=== PATIENT | female | born 1955 | race Caucasian/White ===

== ENCOUNTER → 2017-03-14 | Outpatient (CLI) | payer BC ==
[~2017-03-14] MED LIST: ALLERTEC; AMLO5 PO; ASPI81EC PO; CITA20 PO; CRUTCH4 USE; IBUP800 PO; LISI20 PO; LOVA40 PO; MEDR5 PO; METF500 PO; OMEP40CA12 PO; ONDA4ODT MM; OXYACE5T PO; SIMV10 PO; TAMS.4ER PO; [UNRECOGNIZED DRUG - REMARK]
== END | disposition home or self-care (01) ==
LOC: LAB 11:05
PROVIDERS: Family Medicine
DX: B02.9 Zoster without complications (principal)
CPT/HCPCS: 87798

== ENCOUNTER → 2017-05-17 | Outpatient (CLI) | payer BC | END | disposition home or self-care (01) | LOC: LAB SHORT 08:09 → PLD 08:09 | DX: L30.8 Other specified dermatitis (principal) | CPT/HCPCS: 88305; 88312 ==

== ENCOUNTER 2017-05-18 06:24 | Day surgery (SDC) | payer BC ==
[~2017-05-18] VITALS: Ht 154.9 cm; Wt 91.3 kg
== END 2017-05-18 09:56 | disposition home or self-care (01) ==
LOC: ORSCSDS 06:24
PROVIDERS: Orthopaedic Surgery
PROC: 0JBG0ZZ Excision of Right Lower Arm Subcutaneous Tissue and Fascia, Open Approach (ICD-10-PCS; principal; 2017-05-18 08:00)
DX: M67.431 Ganglion, right wrist (principal); I10 Essential (primary) hypertension; E11.9 Type 2 diabetes mellitus without complications; Z79.899 Other long term (current) drug therapy; Z79.82 Long term (current) use of aspirin
CPT/HCPCS: 82947; 88304; J1885; J2405; J3010; J3370; J7120

== ENCOUNTER → 2018-03-14 | Outpatient (CLI) | payer BC ==
[2018-03-15 12:42] LABS: Appearance, Urine Clear (Clear); Bilirubin, Urine Neg (Neg); Blood, Urine 1+ (Neg); Color, Urine Yellow (P-Yellow); Glucose Qualitative, Urine 3+ (Neg); Ketones, Urine Neg (Neg); Leukocyte Esterase, Urine Neg (Neg); Nitrite, Urine Neg (Neg); Protein, Urine 2+ (Neg); Urobilinogen, Urine NORM (Normal)
[2018-03-15 12:56] LABS: Bacteria Few /hpf; Squamous Epithelial Cells Few /hpf (Few); White Blood Cells, Urine 0-2 /hpf (0-5)
== END | disposition home or self-care (01) ==
LOC: LAB 12:07 → LAB SHORT 12:07
PROVIDERS: Family Medicine
DX: N39.0 Urinary tract infection, site not specified (principal)
CPT/HCPCS: 81001

== ENCOUNTER → 2020-11-18 | Outpatient (CLI) | payer OTHER | END | disposition home or self-care (01) | LOC: LAB SHORT 16:15 | DX: N39.0 Urinary tract infection, site not specified (principal) | CPT/HCPCS: 87086 ==

== ENCOUNTER 2021-02-03 07:58 | Day surgery (SDC) | payer OTHER ==
[2021-02-01 10:56] LABS: BASOPHILS ABSOLUTE AUTO 0.04 K/mm3 (0.00-0.23); BASOPHILS PERCENT AUTO 1 % (0-2); EOSINOPHILS PERCENT AUTO 3 % (0-6); Hematocrit 38.9 % (33.0-51.0); IMMATURE GRAN ABSOLUTE AUTO 0.02 K/mm3 (0.00-0.10); IMMATURE GRAN PERCENT AUTO 0 % (0-1); LYMPHOCYTES ABSOLUTE AUTO 1.24 K/mm3 (0.84-5.20); LYMPHOCYTES PERCENT AUTO 20 % (21-46); MONOCYTES ABSOLUTE AUTO 0.29 K/mm3 (0.16-1.47); MONOCYTES PERCENT AUTO 5 % (4-13); Mean Corpuscular HGB Conc 33.4 g/dL (31.5-36.5); Mean Corpuscular Volume 93 fL (80-100); Mean Platelet Volume 9.5 fL (9.1-12.4); NEUTROPHILS ABSOLUTE AUTO 4.43 K/mm3 (1.96-9.15); NEUTROPHILS PERCENT AUTO 71 % (41-73); Platelet Count 267 K/mm3 (150-400); RDW Coefficient Variation 13.2 % (11.7-14.2); RDW Standard Deviation 44.7 fL (35.1-46.3); White Blood Cell Count 6.22 K/mm3 (4.00-11.30)
[~2021-02-03] VITALS: Ht 154.9 cm; Wt 115.5 kg
[2021-02-03] MEDS ORDERED: IBUP200 PO (08:19)
[2021-02-03] MEDS ORDERED: GLIM4 PO (08:21)
[2021-02-03] MEDS ORDERED: PIOG15 PO (08:22)
[2021-02-03] MEDS ORDERED: HYDCHL25 PO (08:22)
[2021-02-03] MEDS ORDERED: LETR2.5 PO (08:23)
--- NOTE | 2021-02-03 08:24 | NUR ---
History, Chart, Medications and Allergies reviewed before start of procedure. Lungs clear T/O to Auscultation. Patient confirms NPO status and agrees with scheduled surgery. Pre-Op teaching done. Pt verbalizes understanding. Patient reports completing Chlorhexadine shower X2 prior to admission to hospital.
--- NOTE | 2021-02-03 14:16 | NUR ---
02/03/21 1416 Adam Jackson APPROXIMATELY 800CC OF CLEAR YELLOW URINE IN GALVEZ UPON LEAVING OR. GALVEZ IN PLACE TO PACU PER .
[2021-02-04 05:18] LABS: BASOPHILS ABSOLUTE AUTO 0.01 K/mm3 (0.00-0.23); BASOPHILS PERCENT AUTO 0 % (0-2); EOSINOPHILS PERCENT AUTO 0 % (0-6); Hematocrit 36.2 % (33.0-51.0); Hemoglobin 11.9 g/dL (11.5-16.0); IMMATURE GRAN ABSOLUTE AUTO 0.05 K/mm3 (0.00-0.10); IMMATURE GRAN PERCENT AUTO 1 % (0-1); LYMPHOCYTES ABSOLUTE AUTO 1.06 K/mm3 (0.84-5.20); LYMPHOCYTES PERCENT AUTO 10 % (21-46); MONOCYTES ABSOLUTE AUTO 0.51 K/mm3 (0.16-1.47); MONOCYTES PERCENT AUTO 5 % (4-13); Mean Corpuscular HGB 30.2 pg (26.0-34.0); Mean Corpuscular HGB Conc 32.9 g/dL (31.5-36.5); Mean Corpuscular Volume 92 fL (80-100); Mean Platelet Volume 9.6 fL (9.1-12.4); NEUTROPHILS ABSOLUTE AUTO 9.13 K/mm3 (1.96-9.15); NEUTROPHILS PERCENT AUTO 85 % (41-73); Platelet Count 248 K/mm3 (150-400); RDW Coefficient Variation 13.1 % (11.7-14.2); RDW Standard Deviation 44.9 fL (35.1-46.3); Red Blood Cell Count 3.94 M/mm3 (3.80-5.20); White Blood Cell Count 10.76 K/mm3 (4.00-11.30)
[2021-02-04 06:06] LABS: Bun/Creatinine Ratio 29.2 (12.0-20.0); Calcium, Blood 8.8 mg/dL (8.5-10.1); Creatinine, Blood 1.13 mg/dL (0.40-1.00)
--- NOTE | 2021-02-04 10:14 | NUR ---
PT DISCHARGED TO HOME VIA WHEELCHAIR WITH . PT ASKED ABOUT AN RX FOR PAIN MEDICATION PRIOR TO DISCHARGE. I ASKED DR. MELENDEZ BEFORE HE LEFT THE HOSPITAL IF HE WAS GOING TO GIVE AN RX AND HE STATED THAT SHE ALREADY HAD SOME MEDICATIONS AT HOME TO TAKE. I REPORTED THIS BACK TO PT AND SHE SAID THE ONLY MEDICATIONS SHE HAS AT HOME ARE IBUPROFEN. PT ENCOURAGED TO TAKE IBUPROFEN NEEDED PER INSTRUCTIONS AND TO CALL THE ANSWERING SERVICE IF THE PAIN GETS TO BE TOO BAD. PT VERBALIZED UNDERSTANDING TO DISCHARGE INSTRUCTIONS. PT STATED SHE HAS AN APPOINTMENT ALREADY SCHEDULED WITH DR. MELENDEZ ON 02-14-21. PT WAS ALSO GIVEN AN ABDOMINAL BINDER, IT WAS PLACED ON PT, AND EDUCATION WAS PROVIDED ON WEARING IT AT HOME.
== END 2021-02-04 10:05 | disposition home or self-care (01) ==
LOC: ORSCMMR 07:58 → ORD 09:45 → ORSCMMR 09:45 → BC 13:59 → ORSCMMR 02-04 10:05
PROVIDERS: Obstetrics & Gynecology
PROC: 0UT74ZZ Resection of Bilateral Fallopian Tubes, Percutaneous Endoscopic Approach (ICD-10-PCS; principal; 2021-02-03 09:45)
PROC: 8E0W4CZ Robotic Assisted Procedure of Trunk Region, Percutaneous Endoscopic Approach (ICD-10-PCS; principal; 2021-02-03 09:45)
PROC: 0UT94ZZ Resection of Uterus, Percutaneous Endoscopic Approach (ICD-10-PCS; principal; 2021-02-03 09:45)
PROC: 0UT24ZZ Resection of Bilateral Ovaries, Percutaneous Endoscopic Approach (ICD-10-PCS; principal; 2021-02-03 09:45)
DX: N95.0 Postmenopausal bleeding (principal); N80.0 Endometriosis of uterus; D25.9 Leiomyoma of uterus, unspecified; N80.3 Endometriosis of pelvic peritoneum; Z85.3 Personal history of malignant neoplasm of breast; E66.01 Morbid (severe) obesity due to excess calories; Z68.42 Body mass index [BMI] 45.0-49.9, adult; J45.909 Unspecified asthma, uncomplicated; G47.33 Obstructive sleep apnea (adult) (pediatric); E11.9 Type 2 diabetes mellitus without complications; Z79.899 Other long term (current) drug therapy
CPT/HCPCS: 58571; S2900; 36415; 80048; 82947; 85025; 86850; 86900; 86901; 88307; A9270; J0690; J1100; J1170; J1650; J1885; J2370; J2405; J2704; J3010; J7120

== ENCOUNTER → 2021-06-16 | Outpatient (CLI) | payer OTHER ==
[~2021-06-16] MED LIST changes: +GLIM4 PO; +HYDCHL25 PO; +IBUP200 PO; +LETR2.5 PO; +PIOG15 PO
== END ==
LOC: LAB 15:12 → LAB SHORT 15:12
DX: N39.0 Urinary tract infection, site not specified (principal); R82.90 Unspecified abnormal findings in urine
CPT/HCPCS: 87077; 87086; 87186

== ENCOUNTER → 2021-08-08 | Outpatient (CLI) | payer OTHER ==
[2021-08-10 10:27] LABS: Stool Occult Bld Immuno 1 Negative (NEGATIVE)
== END | disposition home or self-care (01) ==
LOC: LAB SHORT 11:15 → LAB 11:15 → LAB FUT 08-05 09:35
PROVIDERS: Family Medicine
DX: I12.9 Hypertensive chronic kidney disease with stage 1 through stage 4 chronic kidney disease, or unspecified chronic kidney disease (principal); E11.22 Type 2 diabetes mellitus with diabetic chronic kidney disease; N18.31 Chronic kidney disease, stage 3a; E78.5 Hyperlipidemia, unspecified; E11.65 Type 2 diabetes mellitus with hyperglycemia
CPT/HCPCS: G0328

== ENCOUNTER → 2021-08-31 | Outpatient (CLI) | payer OTHER | END | disposition home or self-care (01) | LOC: LAB SHORT 16:15 → LAB 16:15 | DX: N39.0 Urinary tract infection, site not specified (principal); R30.0 Dysuria; R35.0 Frequency of micturition | CPT/HCPCS: 87077; 87086; 87186 ==

== ENCOUNTER 2022-02-21 12:23 | Day surgery (SDC) | payer OTHER ==
[~2022-02-21] VITALS: Ht 154.9 cm; Wt 123.3 kg
[~2022-02-21 12:23] MED LIST changes: +FLUTICASONE-SA1 EAC9 IH; +Ventolin/Prove6.7 GM INH
== END 2022-02-21 14:43 | disposition home or self-care (01) ==
LOC: ORSCSDS 12:23
PROVIDERS: Ophthalmology
PROC: 08DJ3ZZ Extraction of Right Lens, Percutaneous Approach (ICD-10-PCS; principal; 2022-02-21 14:00)
DX: H25.11 Age-related nuclear cataract, right eye (principal); E11.9 Type 2 diabetes mellitus without complications; I10 Essential (primary) hypertension; R06.02 Shortness of breath; G47.33 Obstructive sleep apnea (adult) (pediatric); E66.01 Morbid (severe) obesity due to excess calories; Z68.43 Body mass index [BMI] 50.0-59.9, adult; Z79.899 Other long term (current) drug therapy
CPT/HCPCS: 82947; J2001; J2250; J3010; J3301; J7040; V2632

== ENCOUNTER 2022-03-09 07:43 | Day surgery (SDC) | payer OTHER ==
[~2022-03-09] VITALS: Ht 154.9 cm; Wt 125.6 kg
== END 2022-03-09 09:45 | disposition home or self-care (01) ==
LOC: ORSCSDS 07:43
PROVIDERS: Ophthalmology
PROC: 08DK3ZZ Extraction of Left Lens, Percutaneous Approach (ICD-10-PCS; principal; 2022-03-09 09:00)
DX: H25.12 Age-related nuclear cataract, left eye (principal); Z96.1 Presence of intraocular lens; E11.9 Type 2 diabetes mellitus without complications; I10 Essential (primary) hypertension; R06.02 Shortness of breath; E66.9 Obesity, unspecified; Z68.43 Body mass index [BMI] 50.0-59.9, adult; Z79.899 Other long term (current) drug therapy
CPT/HCPCS: 82947; J2250; J3010; J3301; J7040; V2632

== ENCOUNTER → 2023-11-06 | Outpatient (CLI) | payer OTHER | LOC: LAB 15:16 → LAB SHORT 15:16 | DX: N39.0 Urinary tract infection, site not specified (principal) | CPT/HCPCS: 87077; 87086; 87186 ==

== ENCOUNTER → 2025-01-14 | Outpatient (CLI) | payer OTHER ==
[2025-01-14 15:57] LABS: Source, Urine Clean Catch
[2025-01-14 17:56] LABS: Bilirubin, Urine Neg (Neg); Color, Urine Yellow (P-Yellow); Glucose Qualitative, Urine Neg (Neg); Ketones, Urine Neg (Neg); Leukocyte Esterase, Urine 3+ (Neg); Protein, Urine 3+ (Neg); Specific Gravity, Urine 1.025 (1.003-1.022); Urobilinogen, Urine NORM (Normal)
[2025-01-14 18:12] LABS: White Blood Cells, Urine TNTC /hpf (0-5)
== END | disposition home or self-care (01) ==
LOC: LAB 15:55 → LAB SHORT 15:55
PROVIDERS: Nurse Practitioner Family
DX: N39.0 Urinary tract infection, site not specified (principal)
CPT/HCPCS: 81001; 87077; 87086; 87186